=== PATIENT | male | born 1990 | race Caucasian/White ===

== ENCOUNTER 2021-10-19 18:34 | Emergency (ER) | payer OTHER ==
[2021-10-19] MEDS ORDERED: SODIUM CHLORIDE 0.9% 1,000 ML IV STA (19:06)
--- NOTE | 2021-10-19 19:29 | ED ---
General Adult HPI - General Chief complaint: Skin/Abscess/Foreign Body Stated complaint: Rt toe problems Time Seen by Provider: 10/19/21 18:42 Source: patient Mode of arrival: ambulatory Limitations: no limitations - History of Present Illness Initial comments: This 31-year-old male past medical history of alcohol abuse presents to the emergency department with blister and pain to his right great toe. Patient states he is currently at [place] for alcohol treatment and will be discharged on Saturday. He states 2 days ago he noticed a red pimple-like on his right toe in between the web of his first and second toe. Patient states he tried to pop it 2 days ago. Patient states yesterday he noticed some black little dust on it where he then put duct tape around it, after taking off the duct tape today there was a blister present. Patient states he does have a history of MRSA in the past. Patient states he has also been experiencing blood in his stool for the last 2 weeks. Patient states he has had episodes like this on and off for years but states he has noticed blood in his stool more over the last couple of days. Patient states he has been noticing bright red blood in the toilet, but denies any blood clots. Patient states blood is bright red and he denies having any pain. Patient denies any chest pain, shortness breath, ab dominal pain, nausea, vomiting, hemoptysis, change in bladder, headaches, dizziness, lightheadedness. - Related Data Home Medications Medication Instructions Recorded Confirmed Calcium,Magnesium,Zinc, With Vit D3 1 tab PO TID PRN 10/19/21 10/19/21 Chlorpheniramine Maleate 4 mg PO Q4H PRN 10/19/21 10/19/21 Ibuprofen [Motrin Ib] 600 mg PO Q6H PRN 10/19/21 10/19/21 Loperamide HCl [Imodium A-D] 4 mg PO QID PRN 10/19/21 10/19/21 Multivitamins, Thera [Multivitamin 1 tab PO DAILY 10/19/21 10/19/21 (formulary)] Sertraline [Zoloft] 50 mg PO DAILY 10/19/21 10/19/21 Thiamine HCl [Vitamin B-1] 100 mg PO DAILY 10/19/21 10/19/21 guaiFENesin [guaiFENesin Oral 200 mg PO Q4H PRN 10/19/21 10/19/21 Solution] traZODone HCL [Desyrel] 50 - 150 mg PO HS PRN 10/19/21 10/19/21 Previous Rx's Medication Instructions Recorded Cephalexin [Keflex] 500 mg PO Q6HR #20 cap 10/19/21 Sulfamethox-Tmp 800-160Mg [Bactrim 1 tab PO Q12HR #10 tab 10/19/21 DS 800-160 mg] Allergies Allergy/AdvReac Type Severity Reaction Status Date / Time No Known Allergies Allergy Verified 10/19/21 20:04 Review of Systems ROS Statement: Those systems with pertinent positive or pertinent negative responses have been documented in the HPI. ROS Other: All systems not noted in ROS Statement are negative. Past Medical History Past Medical History: No Reported History History of Any Multi-Drug Resistant Organisms: None Reported Past Surgical History: No Surgical Hx Reported Past Psychological History: ADD/ADHD, Anxiety, Depression Smoking Status: Current every day smoker Past Alcohol Use History: None Reported Past Drug Use History: Marijuana General Exam Limitations: no limitations General appearance: alert, in no apparent distress Head exam: Present: atraumatic, normocephalic, normal inspection Eye exam: Present: normal appearance, PERRL, EOMI. Absent: scleral icterus, conjunctival injection, periorbital swelling ENT exam: Absent: mucous membranes moist Neck exam: Present: full ROM Respiratory exam: Present: normal lung sounds bilaterally. Absent: respiratory distress, wheezes, rales, rhonchi, stridor Cardiovascular Exam: Present: regular rate, normal rhythm, normal heart sounds. Absent: systolic murmur, diastolic murmur, rubs, gallop, clicks GI/Abdominal exam: Present: soft, normal bowel sounds. Absent: distended, tenderness, guarding, rebound, rigid Rectal exam: Present: normal inspection, normal rectal tone, heme (-) stool. Absent: hemorrhoids Extremities exam: Present: other (In between right great toe and second toe 1.5 cm blister present with erythema surrounding the base. He states while he has been at [place] he has been wearing flip-flops in the shower which do rubbed on this area) Back exam: Present: full ROM. Absent: tenderness, CVA tenderness (R), CVA tenderness (L) Neurological exam: Present: alert, oriented X3, CN II-XII intact Psychiatric exam: Present: normal affect, normal mood Skin exam: Present: warm, dry, intact, normal color. Absent: rash Course Vital Signs 10/19/21 18:38 Temperature 98.1 F Pulse Rate 98 Respiratory 20 Rate Blood Pressure 149/85 O2 Sat by Pulse 97 Oximetry - Reevaluation(s) Reevaluation #1: 10/19/21 20:15 Wound culture taken of fluid draining from blister between right great and second toe Medical Decision Making - Medical Decision Making This 31-year-old male with a past medical history of alcohol use disorder, currently at [place], presents emergency Department with a blister between the great right and second toe that began this morning. Patient also states that he has been having blood per rectum for the last couple of weeks, worsening over the last couple days. Labs were unremarkable. Occult negative. Blister was drained and cultures were taken. Due to patient's history of MRSA inf ection, Keflex and Bactrim were prescribed to patient. Patient informed to follow up with GI and primary care provider early next week. Strict return precautions were discussed. Patient verbally agree to plan. Patient sent home in stable condition. Case discussed with my attending, . - Lab Data Result diagrams: 10/19/21 19:39 10/19/21 19:39 Lab Results 10/19/21 10/19/21 10/19/21 Range/Units 19:39 19:39 19:39 WBC 6.4 (3.8-10.6) k/uL RBC 4.48 (4.30-5.90) m/uL Hgb 14.5 (13.0-17.5) gm/dL Hct 43.6 (39.0-53.0) % MCV 97.3 (80.0-100.0) fL MCH 32.2 (25.0-35.0) pg MCHC 33.1 (31.0-37.0) g/dL RDW 12.5 (11.5-15.5) % Plt Count 252 (150-450) k/uL MPV 7.4 Neutrophils % 51 % Lymphocytes % 30 % Monocytes % 8 % Eosinophils % 6 % Basophils % 1 % Neutrophils # 3.2 (1.3-7.7) k/uL Lymphocytes # 1.9 (1.0-4.8) k/uL Monocytes # 0.5 (0-1.0) k/uL Eosinophils # 0.4 (0-0.7) k/uL Basophils # 0.1 (0-0.2) k/uL PT 9.7 (9.0-12.0) sec INR 0.9 (<1.2) APTT 26.4 (22.0-30.0) sec Sodium 140 (137-145) mmol/L Potassium 4.3 (3.5-5.1) mmol/L Chloride 105 (98-107) mmol/L Carbon Dioxide 27 (22-30) mmol/L Anion Gap 8 mmol/L BUN 18 (9-20) mg/dL Creatinine 0.84 (0.66-1.25) mg/dL Est GFR (CKD-EPI)AfAm >90 (>60 ml/min/1.73 sqM) Est GFR (CKD-EPI)NonAf >90 (>60 ml/min/1.73 sqM) Glucose 90 (74-99) mg/dL Plasma Lactic Acid William (0.7-2.0) mmol/L Calcium 9.5 (8.4-10.2) mg/dL Total Bilirubin 0.3 (0.2-1.3) mg/dL AST 28 (17-59) U/L ALT 24 (4-49) U/L Alkaline Phosphatase 64 (38-126) U/L Total Protein 7.0 (6.3-8.2) g/dL Albumin 4.3 (3.5-5.0) g/dL Lipase 98 (23-300) U/L Stool Occult Blood (Negative) 10/19/21 10/19/21 Range/Units 19:39 19:39 WBC (3.8-10.6) k/uL RBC (4.30-5.90) m/uL Hgb (13.0-17.5) gm/dL Hct (39.0-53.0) % MCV (80.0-100.0) fL MCH (25.0-35.0) pg MCHC (31.0-37.0) g/dL RDW (11.5-15.5) % Plt Count (150-450) k/uL MPV Neutrophils % % Lymphocytes % % Monocytes % % Eosinophils % % Basophils % % Neutrophils # (1.3-7.7) k/uL Lymphocytes # (1.0-4.8) k/uL Monocytes # (0-1.0) k/uL Eosinophils # (0-0.7) k/uL Basophils # (0-0.2) k/uL PT (9.0-12.0) sec INR (<1.2) APTT (22.0-30.0) sec Sodium (137-145) mmol/L Potassium (3.5-5.1) mmol/L Chloride (98-107) mmol/L Carbon Dioxide (22-30) mmol/L Anion Gap mmol/L BUN (9-20) mg/dL Creatinine (0.66-1.25) mg/dL Est GFR (CKD-EPI)AfAm (>60 ml/min/1.73 sqM) Est GFR (CKD-EPI)NonAf (>60 ml/min/1.73 sqM) Glucose (74-99) mg/dL Plasma Lactic Acid William 1.1 (0.7-2.0) mmol/L Calcium (8.4-10.2) mg/dL Total Bilirubin (0.2-1.3) mg/dL AST (17-59) U/L ALT (4-49) U/L Alkaline Phosphatase (38-126) U/L Total Protein (6.3-8.2) g/dL Albumin (3.5-5.0) g/dL Lipase (23-300) U/L Stool Occult Blood Negative (Negative) Disposition Clinical Impression: Blister (nonthermal), right great toe, initial encounter Disposition: HOME SELF-CARE Condition: Stable Instructions (If sedation given, give patient instructions): Rectal Bleeding (ED), Blister (ED) Additional Instructions: Please return to the emergency department with any concerning, new, or worsening symptoms. Please follow-up with primary care provider and GI early next week. Prescriptions: Sulfamethox-Tmp 800-160Mg [Bactrim DS 800-160 mg] 1 tab PO Q12HR #10 tab Cephalexin [Keflex] 500 mg PO Q6HR #20 cap Is patient prescribed a controlled substance at d/c from ED?: No Referrals: Nonstaff,Physician [Primary Care Provider] - 1-2 days Tumma,Heaven, MD [STAFF PHYSICIAN] - 1-2 days Time of Disposition: 20:28
[2021-10-19 19:43] LABS: Basophils # (A) 0.1 k/uL (0-0.2); Basophils % (A) 1 %; Eosinophils # (A) 0.4 k/uL (0-0.7); Eosinophils % (A) 6 %; HCT 43.6 % (39.0-53.0); HGB 14.5 gm/dL (13.0-17.5); Lymphocytes # (A) 1.9 k/uL (1.0-4.8); Lymphocytes % (A) 30 %; MCH 32.2 pg (25.0-35.0); MCHC 33.1 g/dL (31.0-37.0); MCV 97.3 fL (80.0-100.0); Mean Platelet Volume 7.4; Monocytes # (A) 0.5 k/uL (0-1.0); Monocytes % (A) 8 %; Neutrophils # (A) 3.2 k/uL (1.3-7.7); Neutrophils % (A) 51 %; Platelet Count 252 k/uL (150-450); RBC 4.48 m/uL (4.30-5.90); RDW 12.5 % (11.5-15.5); WBC 6.4 k/uL (3.8-10.6)
[2021-10-19 19:57] LABS: INR 0.9 (<1.2); Partial Thromboplastin Time 26.4 sec (22.0-30.0); Prothrombin Time 9.7 sec (9.0-12.0)
[2021-10-19 20:00] LABS: ALT 24 U/L (4-49); AST 28 U/L (17-59); African American GFR (CKD) >90 (>60 ml/min/1.73 sqM); Albumin 4.3 g/dL (3.5-5.0); Alkaline Phosphatase 64 U/L (38-126); Anion Gap 8 mmol/L; Blood Urea Nitrogen 18 mg/dL (9-20); Calcium 9.5 mg/dL (8.4-10.2); Carbon Dioxide 27 mmol/L (22-30); Chloride 105 mmol/L (98-107); Glucose 90 mg/dL (74-99); Lipase 98 U/L (23-300); Non-African American GFR(CKD) >90 (>60 ml/min/1.73 sqM); Potassium 4.3 mmol/L (3.5-5.1); Sodium 140 mmol/L (137-145); Total Bilirubin 0.3 mg/dL (0.2-1.3)
[2021-10-19 20:55] VITALS: BP 128/72; PULSE 76; RESP 16; TEMP 98.3
[2021-10-19] MEDS ORDERED: CEPHALEXIN 500 MG CAP PO STA (21:03)
[2021-10-19] MEDS ORDERED: SULFAMETHOX-TMP 800-160MG 1 EACH TAB PO STA (21:04)
== END 2021-10-19 20:54 | disposition home or self-care (01) ==
LOC: EC 18:34
DX: S90.421A Blister (nonthermal), right great toe, initial encounter (principal); F17.200 Nicotine dependence, unspecified, uncomplicated; F12.90 Cannabis use, unspecified, uncomplicated; F32.A Depression, unspecified; F41.9 Anxiety disorder, unspecified; Z79.899 Other long term (current) drug therapy; X58.XXXA Exposure to other specified factors, initial encounter
CPT/HCPCS: 36415; 80053; 82272; 83605; 83690; 85025; 85610; 85730; 87070; 87205; 96360; 99283